=== PATIENT | female | born 1945 | race Caucasian/White ===

== ENCOUNTER 2025-03-23 10:15 | Observation (INO) | payer MEDICARE, BC, MEDICAID ==
[2025-03-20 10:28] LABS: LEUKOCYTE ESTERASE ,URINE NEGATIVE (Neg); NITRITES, URINE NEGATIVE (Neg); OCCULT BLOOD,URINE NEGATIVE (Neg)
[2025-03-20 10:30] LABS: MEAN PLATELET VOLUME 7.7 FL (7.4-10.4); PRE OP HEMATOCRIT 38.4 % (35.0-45.0); PRE OP HEMOGLOBIN 12.3 g/dL (12.0-16.0); PRE OP PLATELET COUNT 627 X10'3 (140-440); PRE OP WHITE BLOOD COUNT 7.6 10'3 (4.8-10.8); RED CELL DISTRIBUTION WIDTH 17.7 % (11.5-14.5)
[2025-03-20 10:31] LABS: UA COLLECTION TYPE CLN CATCH MIDSTREAM
[2025-03-20 10:42] LABS: PRE OP INR 1.0 INR; PRE OP PARTIAL THROMB. TIME 27.0 SECONDS (22-32); PRE OP PROTIME 10.5 SECONDS (9.0-12.0)
[2025-03-20 10:54] LABS: CREATININE 0.51 MG/DL (0.40-0.90); PRE OP ALT 35 U/L (30-65); PRE OP ANION GAP 6 (8-16); PRE OP AST 24 U/L (10-37); PRE OP BILIRUB, TOTAL 0.3 MG/DL (0.0-1.0); PRE OP GLUCOSE 101 MG/DL (70-104); PRE OP POTASSIUM 4.3 MMOL/L (3.4-5.1); PRE OP SODIUM 137 MMOL/L (135-145); TOTAL CARBON DIOXIDE 29.8 MMOL/L (24-32); eGFR > 90 ML/MIN
[~2025-03-23] VITALS: Ht 157.5 cm; Wt 88.5 kg
[~2025-03-23 10:15] MED LIST: ACET-3414 PO; ATOR40TA PO; FAMO40TA58 PO; [UNRECOGNIZED DRUG - CODE] PO
[2025-03-23] MEDS ORDERED: LEVO25CA5 PO (12:49)
[2025-03-23] MEDS ORDERED: AMLO5TAB PO (12:49)
[2025-03-23] MEDS ORDERED: FLUO10CA65 PO (12:49)
[2025-03-23] MEDS ORDERED: GINK120C3 PO (12:50)
[2025-03-26] VITALS (25 sets, daily range): BP systolic 105–162; BP diastolic 48–83; PULSE 73–94; RESP 11–19; TEMP 97.9–98.1; O2SAT 91–98
[2025-03-26] MEDS: ringers solution, lacted 1,000 ML IV SCH ×2 (05:30→18:15)
[2025-03-26] MEDS: ceFAZolin 2gm/dext,iso 50mL 50 ML IV ONE (12:28)
[2025-03-26] MEDS ORDERED: LIDOcaine 1% (10mg/ml)w/preservative inj. 20ml MDV ONE (13:10)
[2025-03-26] MEDS ORDERED: fentaNYL/PF 50MCG/1 ML 2ML syringe ONE (17:39)
[2025-03-26] MEDS ORDERED: propofol inj 20 ML IV ONE (17:42)
[2025-03-26] MEDS ORDERED: LIDOcaine 1%/PF 5ML 10 MG/ML VIAL ONE (17:43)
[2025-03-26] MEDS ORDERED: ondansetron/PF 4mg/2ml inj ONE (17:43)
[2025-03-26] MEDS ORDERED: ondansetron/PF 4mg/2ml inj IV PRN (18:15)
[2025-03-26] MEDS ORDERED: hydrALAZINE 20mg/ml inj. IV PRN (18:15)
--- NOTE | 2025-03-26 18:38 | OPERATIVE REPORT ---
Operative Report Providers to CC ~ Date of Procedure: Mar 26, 2025 Pre-Operative Diagnosis: sickk sinus syndrome Post-Operative Diagnosis SAME as PRE-Op Procedure Performed a-v sequential ppm placement Surgeon: traci Make Up Man monet Anesthesiologist: Nas Ruelas Type of Anesthesia: General Findings: see op note Estimated Blood Loss: min Specimen Removed: none MAYO ROMO MD Mar 26, 2025 18:38
[2025-03-26] MEDS ORDERED: PCA WASTE DOCUMENTATION 1 MG ML MC SCH (18:45)
[2025-03-26] MEDS ORDERED: HYDROcodone/acetaminophen 5mg/325mg tablet PO PRN (18:45)
[2025-03-26] MEDS: morphine 4 MG/ML inj SYRINge IV PRN (19:00)
--- NOTE | 2025-03-26 19:04 | ELECTROCARDIOGRAPH REPORT ---
[facility] Test Date: 2025-03-26 Test Time: 18:58:54 Pat Name: ERASMO RATLIFF Department: [facility] IN Patient ID: 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 Tone Higuera Measurements Intervals [place] Rate: 88 P: 73 IN: 252 QRS: 59 QRSD: 73 T: 30 QT: 408 QTc: 494 Interpretive Statements Sinus rhythm Prolonged IN interval Low voltage, precordial leads Probable anterior infarct, old Borderline prolonged QT interval Electronically Signed On 03-28-2025 13:19:[address] Tone Higuera Please click the below link to view image of tracing.
--- NOTE | 2025-03-26 19:11 | RADIOLOGY REPORT ---
CHEST RADIOGRAPH Indication: POST-OP PACEMAKER Technique: Single frontal view of the chest was obtained COMPARISON: None FINDINGS: Left chest wall pacing device with lead tip superimposed over the right atrium and right ventricle. Probable subcutaneous pacing device superimposed over the left chest. Cardiac silhouette is borderline in size. No overt pulmonary edema. Lungs and pleural spaces are clear. No significant pleural effusion or pneumothorax. Bones and soft tissues demonstrate no significant abnormality. IMPRESSION: Status post pacemaker insertion with no complication.
[2025-03-26] MEDS: acetaminophen 1,000mg/100ml IV 100 ML IV PRN (19:51)
[2025-03-26] MEDS: potassium CL 20mEq in D5-1/2NS 1,000 ML IV SCH (22:35)
[2025-03-26] MEDS: acetaminophen 325mg/10.15ml oral unit dose solution PO SCH (22:37)
[2025-03-26] MEDS: ceFAZolin/D5W- 1GM premix 50 ML IV SCH (23:16)
[2025-03-27] VITALS (8 sets, daily range): BP systolic 103–126; BP diastolic 46–80; PULSE 63–80; RESP 12–19; TEMP 97.4–98.3; O2SAT 93–97
--- NOTE | 2025-03-27 03:46 | OPERATIVE REPORT ---
DATE OF SURGERY: 03/26/2025 DICTATING PHYSICIAN: Nicolas Vyas MD PREOPERATIVE DIAGNOSIS: Sick sinus syndrome. POSTOPERATIVE DIAGNOSIS: Sick sinus syndrome. PROCEDURE PERFORMED: Pacemaker placement. SURGEON: Nicolas Vyas MD TECHNICAL ARTIST: None. ANESTHESIA: General anesthesia. INTRAOPERATIVE FINDINGS: The atrial lead was as follows: P wave of 1, impedance of 513, and threshold of 1.5. The ventricular lead was as follows: R wave of 5, impedance of 931, and threshold of 0.5. DESCRIPTION OF PROCEDURE: An 79-year-old female with sick sinus syndrome was taken to surgery for pacemaker placement. The patient was placed supine on the operating room table. After induction of general anesthesia and placement of an endotracheal tube, the chest was prepped and draped. An oblique incision was made in the left upper chest down to the pectoral fascia. The left subclavian vein was then accessed using the modified Seldinger technique. Wires were passed into the right atrium. A sheath was then placed. Atrial and ventricular leads were passed into the right atrium. The right ventricular lead was placed in the right ventricular apex using fluoroscopy. The lead was coiled and secured to the pectoral fascia using 0 Vicryl. The ventricular lead was a Medtronic lead, serial number [id number]. The Medtronic atrial lead was placed in the right atrial appendage using fluoroscopy. Parameters were as follows: P wave of 1, impedance 513, and threshold 1.5. The atrial lead was a Medtronic, serial number [id number]. The lead was then secured to the pectoralis fascia using 0 Vicryl. A subcutaneous pocket was then created. The Medtronic pulse generator, serial number [id number], was then attached to the atrial and ventricular leads. A 0 Vicryl suture was used to affix the generator to the pacemaker pocket. Fluoroscopy was used to confirm no pneumothorax and good lead position. The wound was irrigated with Marcaine solution and closed in layers. The skin was closed with a subcuticular stitch and a dressing was applied. The patient was transferred to recovery in stable condition after reversing from anesthesia. Nicoals Vyas MD TID: [id number] RECEIPT: [id number] KB/[facility] cc: Felice Headley MD(User)
[2025-03-27] MEDS ORDERED: non-formulary drug (Ginkgo Biloba Extract (Ginkgo Biloba) 120 MG) PO SCH (08:00)
[2025-03-27] MEDS: levoTHYROXINE 25mcg tablet PO SCH (08:42)
[2025-03-27] MEDS: LIOthyronine 25mcg tablet PO SCH (08:53)
--- NOTE | 2025-03-27 17:46 | PROGRESS NOTE ---
Progress Note ID Providers to CC ~ Progress Note Progress Note: doing well/ dc MAYO ROMO MD Mar 27, 2025 17:46
== END 2025-03-27 19:04 | disposition home health service (06) ==
LOC: PAS IN 03-26 11:54 → INTOOBSV 03-26 11:54 → EDBEDREQSVC 03-26 20:03 → PCU 3S 03-26 21:46
PROVIDERS: ADMIT Surgery; ATTEND Surgery
DX: I49.5 Sick sinus syndrome (principal); R00.0 Tachycardia, unspecified; E03.9 Hypothyroidism, unspecified; E78.5 Hyperlipidemia, unspecified; G89.29 Other chronic pain; R79.1 Abnormal coagulation profile; Z79.899 Other long term (current) drug therapy; Z98.890 Other specified postprocedural states
CPT/HCPCS: 33208; 71048; 80053; 81003; 82948; 84443; 85610; 85730; 93005; 94760; 96365; 96366; 96375; 97161; A4215; A4615; A4618; A7000; C1785; C1898; G0378; J3480; J3490; J7120; Q0163; 71045; 76000; 85025; 87081; 97530; A6258; J0131; J0690; J2270; J2405; J2704; J3010; J7030; J7040